=== PATIENT | male | born 1975 | race Caucasian/White ===

== ENCOUNTER 2019-07-13 05:46 | Day surgery (SDC) | payer SELFPAY ==
[2019-07-06 15:55] LABS: Hematocrit 45.3 % (40-54); Hemoglobin 15.1 g/dL (13.0-16.5); Mean Corp Hgb Conc 33.3 g/dL (32-36); Mean Corpuscular Hgb 28.7 pg (27.0-32.0); Platelet Count 230 K/mm3 (150-450); RBC Distribution Width CV 12.4 % (11.6-14.6); RBC Distribution Width SD 38.6 fl (35.1-43.9); Red Blood Count 5.27 M/mm3 (4.6-6.2); White Blood Count 8.6 K/mm3 (4.4-11.0)
[2019-07-06 16:20] LABS: Anion Gap 4 (5-15); BUN 19 mg/dL (7-18); BUN/Creat Ratio 19.6 RATIO (10-20); Calcium,Total 9.1 mg/dL (8.5-10.1); Chloride 105 mmol/L (98-107); Creatinine, Serum 0.97 mg/dL (0.70-1.30); EST Glomerular Filtration Rate 90 mL/min (>60); Est Glom Filt Rate - Afr Amer 108 mL/min (>60); Glucose 88 mg/dL (74-106); Potassium 4.1 mmol/L (3.5-5.1); Sodium Level 138 mmol/L (136-145)
[2019-07-13] VITALS (11 sets, daily range): BP systolic 110–127; BP diastolic 59–88; PULSE 61–85; RESP 16–18; TEMP 35.4–36.6; O2SAT 94–100; BMI 26.6
[2019-07-13] MEDS: Lactated Ringers 1,000 ML 100 ML IV (06:58)
[2019-07-13] MEDS: Cefazolin 2 GM in 0.9% Normal Saline 100 ML IV (07:34)
[2019-07-13] MEDS: Epinephrine (1 mg/ml) 1 MG/ML VIAL ×2 (07:58)
[2019-07-13] MEDS: Bupiv/Epi 0.5% Mpf 30 ML Vial (09:03)
--- NOTE | 2019-07-13 10:25 | OP.PCM_ITS ---
Report of Operation Date of Procedure: 07/13/19 Pre-Operative Diagnosis: Right shoulder SAIS, AC arthrosis, bicipital tendonitis and rotator cuff repair Post-Operative Diagnosis: same Surgery/Procedure Performed:: ASD, Samy procedure, biceps tenotomy and RCR right shoulder tire builder operator: Jorge L Dacosta Type of Anesthesia:: General/Regional Anesthesiologist: Josh Jo - Admryley VTE Documentation VTE Present on Admission: No VTE Mechan Device Prophylaxis: SCD's, Thigh High MADHAV Hose VTE Pharm Prophylaxis ordered?: No Reason prophylaxis not ordered:: Treatment Not Indicated
== END 2019-07-13 12:43 | disposition home or self-care (01) ==
LOC: SDC 05:49 → AC 05:50
PROVIDERS: Orthopaedic Surgery; Referring Provider Physician Assistant; Visit Provider Physician Assistant
PROC: (CPT 29827; principal; 2019-07-13 07:10)
DX: M75.41 Impingement syndrome of right shoulder (principal); M19.011 Primary osteoarthritis, right shoulder; M75.21 Bicipital tendinitis, right shoulder; M75.51 Bursitis of right shoulder; F17.200 Nicotine dependence, unspecified, uncomplicated
CPT/HCPCS: 29824; 36415; 80048; 85027; J7120; J2405